=== PATIENT | female | born 1965 | race Caucasian/White ===

== ENCOUNTER 2019-04-10 17:35 | Emergency (ER) | payer BC ==
[2019-04-10 18:13] VITALS: BP 140/78
--- NOTE | 2019-04-10 18:24 | UC ---
Eye Complaint HPI - HPI Summary HPI Summary: 54-year-old female who started experiencing some eye redness with purulent drainage. She has been swimming in a chlorinated pool recently. She denies any visual changes. - History of Current Complaint Chief Complaint: UCEye Stated Complaint: EYE CONCERN Time Seen by Provider: 04/10/19 17:43 Hx Obtained From: Patient Hx Last Menstrual Period: unknown ?: No Onset/Duration: Gradual Onset Timing: Constant Severity Initially: Mild Severity Currently: Mild Pain Intensity: 4 Location of Injury: Other - No injury Aggravating Factor(s): Nothing Alleviating Factor(s): Nothing Associated Signs And Symptoms: Positive: Drainage (Purulent). Negative: Vision Impairment Right, Vision Impairment Left - Allergies/Home Medications Allergies/Adverse Reactions: Allergies Allergy/AdvReac Type Severity Reaction Status Date / Time No Known Allergies Allergy Verified 04/10/19 18:00 Home Medications: Home Medications FLUoxetine CAP* [PROzac CAP*] 20 mg PO DAILY 04/10/19 [History Confirmed ] PMH/Surg Hx/FS Hx/Imm Hx Previously Healthy: Yes Psychological History: Depression - Surgical History Surgical History: Yes Surgery Procedure, Year, and Place: (quadruplets) - Family History Known Family History: Positive: Hypertension - Social History Alcohol Use: Rare Substance Use Type: None Smoking Status (MU): Never Smoked Tobacco Review of Systems All Other Systems Reviewed And Are Negative: Yes Eyes: Positive: Drainage - Yellow purulent drainage throughout the day. No visual changes., Eye Redness Is Patient Immunocompromised?: No Physical Exam Triage Information Reviewed: Yes Appearance: Well-Appearing, No Pain Distress, Well-Nourished Vital Signs: Initial Vital Signs Temp 97.6 F 04/10/19 18:05 Pulse 77 04/10/19 18:05 Resp 20 04/10/19 18:05 BP 140/78 04/10/19 18:05 Pulse Ox 99 04/10/19 18:05 Vital Signs Reviewed: Yes Eyes: Positive: Conjunctiva Inflamed, Discharge - Purulent discharge left eye Musculoskeletal Exam: Normal Neurological Exam: Normal Psychological Exam: Normal Skin Exam: Normal Eye Complaint Course/Dx - Course Course Of Treatment: She is comfortable here. She is not to swim in chlorinated pool for the next week. Follow-up with the mortgage originator if no improvement in 3 or 4 days. - Differential Dx/Diagnosis Provider Diagnosis: Bilateral conjunctivitis Discharge - Sign-Out/Discharge Documenting (check all that apply): Patient Departure All imaging exams completed and their final reports reviewed: No Studies - Discharge Plan Condition: Fair Disposition: HOME Prescriptions: Tobramycin 0.3% OPHTH.BRENDA* 1 drop BOTH EYES Q4H 7 Days #1 btl Patient Education Materials: Conjunctivitis (ED) Referrals: Kiersten Anna MD [Primary Care Provider] - Additional Instructions: Good handwashing. Follow up with an mortgage originator in approximately 2 or 3 days if no improvement. - Billing Disposition and Condition Condition: FAIR Disposition: Home
== END 2019-04-10 18:37 | disposition home or self-care (01) ==
LOC: UCCORT 17:35
DX: H10.9 Unspecified conjunctivitis (principal)
CPT/HCPCS: 99202; G0463

== ENCOUNTER 2019-08-13 19:32 | Emergency (ER) | payer BC ==
--- OUTSIDE RECORDS SUMMARY | 2019-08-13 19:44 | XMS REPORT | Continuity of Care Document ---
:1965 External Reference #:[id number] Author Name Mik Caceres MD Address [address] [place] [address] Care Team Providers Name Role Phone Kiersten Anna MD - Family Medicine Care Team Information Medical Health Researcher Problems Active Problems Provider Date Sprain of knee and leg Ta Easley MD Onset: 01/10/2013 Mixed hyperlipidemia Eris Mccabe M.D., [facility] Onset: 02/15/2018 Hyperlipidemia Eris Mccabe M.D., [facility] Onset: 02/15/2018 Social History Type Date Description Comments Sex Unknown Tobacco Use Start: Unknown Never Smoked Cigarettes ETOH Use Denies alcohol use Recreational Drug Use Denies Drug Use Tobacco Use Start: Unknown Patient denies history of smoking Smoking Status Reviewed: 08/09/19 Patient denies history of smoking Allergies, Adverse Reactions, Alerts Description No Known Drug Allergies Medications Active Medications SIG Qnty Indications Ordering Provider Date Wellbutrin 1 po qd Unknown Tablets Benadryl Allergy 2 tab by mouth Unknown 25mg every 6 hours as Capsules needed Prozac 1 by mouth every Unknown 20mg Capsules day Immunizations Description No Information Available Vital Signs Date Vital Result Comment 08/09/2019 11:45am BP Systolic Sitting Left Arm 142 mmHg BP Diastolic Sitting Left Arm 90 mmHg Heart Rate 70 /min Respiratory Rate 18 /min Height 66.5 inches 5'6.50" Weight 278.00 lb BMI (Body Mass Index) 44.2 kg/m2 BSA (Body Surface Area) 2.31 m2 [place] body weight in kilograms 60 kg O2 % BldC Oximetry 98 % 11/08/2018 9:56am BP Systolic Sitting Right Arm 151 mmHg BP Diastolic Sitting Right Arm 88 mmHg Body Temperature 97.0 F Heart Rate 73 /min Height 66.5 inches 5'6.50" Weight 272.50 lb BMI (Body Mass Index) 43.3 kg/m2 BSA (Body Surface Area) 2.29 m2 [place] body weight in kilograms 60 kg O2 % BldC Oximetry 98 % Pain Level 3 Results Description No Information Available Procedures Date Code Description Status 08/09/2019 06162 EKG-Tracing And Report Completed Medical Devices Description No Information Available Encounters Type Date Location Provider Dx Diagnosis Office Visit 08/09/2019 Cardiology Office Mik Caceres MD R06.02 Shortness of 11:40a breath R00.2 Palpitations I10 Essential (primary) hypertension R06.83 Snoring Assessments Date Code Description Provider 08/09/2019 R06.02 Dyspnea on exertion Mik Caceres MD 08/09/2019 R00.2 Palpitations Mik Caceres MD 08/09/2019 I10 Benign essential hypertension Mik Caceres MD 08/09/2019 R06.83 Snoring Mik Caceres MD Plan of Treatment 08/09/2019 - Mik Caceres MDR06.02 Dyspnea on exertionNew Orders:Echocardiogram , Exercise Stress, Ordered: 08/09/19Comments:Likely multifactorial. Suspect contribution of obesity, deconditioning, HTN, possibly JOB. Will get stress echo to assess hemodynamic response, rule out ischemia and evaluate for LV function/CMPR00.2 PalpitationsComments:Infrequent and short lasting symptoms. Will hold off testing aside of JOB [id number] Benign essential hypertensionComments:Likely linked to sedentary life, obesity and excess salt, potentially underlying JOB. Will focus on dietary changes and get reassessed with stress [id number] SnoringComments:referral to Dr Bravo for JOB testing and managementAllFollow up:After the studies are completed. Functional Status Functional Condition Comment Date Status Independent with all ADL's Active Mental Status Description No Information Available Referrals Description No Information Available
--- NOTE | 2019-08-13 20:16 | UC ---
Throat Pain/Nasal Jonathan HPI - HPI Summary HPI Summary: 54 y/o female presents to the urgent care c/o sinus congestion w/ yellowish nasal discharge and Sore throat x 6 days. Moderate post nasal drip and crackles and pressure in left ear. Sinus pain and BUSH is 4/10. Sore throat has improve, but left side of her face feels w/ a lot of pressure and pain. Pt has taken OTC medications like Mucinex PO and Benadryl PO w/o any improvement. Pt w / Hx of sinusitis in the past. Pt denies fever, dizziness, SOB, chest pain, abdominal pain, N/V/d. - History of Current Complaint Stated Complaint: SORE THROAT, CONGESTION, LEFT EAR COMPLAINT Time Seen by Provider: 08/13/19 20:14 Hx Obtained From: Patient Hx Last Menstrual Period: unknown Onset/Duration: Gradual Onset, Lasting Days - 6 days, Still Present, Worse Since - 2 days unable to sleep well due to sinus congestion Severity: Moderate Pain Intensity: 4 Pain Scale Used: 0-10 Numeric Cough: Nonproductive Associated Signs & Symptoms: Positive: Sinus Discomfort, Nasal Discharge - yellowish. Negative: Wheezing, Fever - Epiglottits Risk Factors Epiglottis Risk Factors: Negative - Allergies/Home Medications Allergies/Adverse Reactions: Allergies Allergy/AdvReac Type Severity Reaction Status Date / Time No Known Allergies Allergy Verified 08/13/19 20:17 PMH/Surg Hx/FS Hx/Imm Hx Previously Healthy: Yes Psychological History: Anxiety, Depression - Surgical History Surgical History: Yes Surgery Procedure, Year, and Place: (quadruplets) - Family History Known Family History: Positive: Hypertension - Social History Occupation: Employed Full-time Lives: With Family Alcohol Use: Rare Substance Use Type: None Smoking Status (MU): Never Smoked Tobacco Review of Systems All Other Systems Reviewed And Are Negative: Yes Constitutional: Positive: Negative Skin: Positive: Negative Eyes: Positive: Negative ENT: Positive: Sore Throat, Ear Ache - left ear pain, Nasal Discharge - yellowish, Sinus Congestion, Sinus Pain/Tenderness, Other - moderate yellowish PND Respiratory: Positive: Cough - dry Cardiovascular: Positive: Negative Gastrointestinal: Positive: Negative Genitourinary: Positive: Negative Motor: Positive: Negative Neurovascular: Positive: Negative Musculoskeletal: Positive: Negative Neurological: Positive: Negative Psychological: Positive: Negative Is Patient Immunocompromised?: No Physical Exam - Summary Physical Exam Summary: Vitals: reviewed General: Well developed, well-nourished obese female patient with NAD. Head and face: Normocephalic and atraumatic, Positive tenderness over the frontal and maxillary sinuses.. Eyes: PERRLA, EOMI x 2. Normal conjunctiva. No eye discharge. ENT: Ears and TM with normal limits. Nose: edematous and erythematous nasal mucosa with with yellowish discharge and erythematous mucosa. Pharynx with erythema, no exudate. yellowish PND Neck: Supple, no JVD, no carotid bruits and no lymphadenopathy. Lungs: clear, no rales, no rhonchi, no wheezes. CVS: RRR, S1 and S2 present no murmurs or gallops appreciated. Abdomen: soft nontender with positive bowel sounds. Extremities: no edema noted. Neuro: WNL. Skin: warm and dry Triage Information Reviewed: Yes Throat Pain/Nasal Course/Dx - Course Course Of Treatment: 54 y/o female presents to the urgent care c/o sinus congestion w/ yellowish nasal discharge and Sore throat x 6 days. Moderate post nasal drip and crackles and pressure in left ear. Sinus pain and BUSH is 4/10. Sore throat has improve, but left side of her face feels w/ a lot of pressure and pain. Pt has taken OTC medications like Mucinex PO and Benadryl PO w/o any improvement. Pt w / Hx of sinusitis in the past. Pt denies fever, dizziness, SOB, chest pain, abdominal pain, N/V/d. Hx obtained. Pt w/ bacterial sinusitis one examination. Pt with 6 days of symptoms getting worse. Pt Rx Amoxicillin PO and flonase nasal spray. Discharge instructions explained to Pt. Advised to Return to the clinic or PCP if symptoms do not improve.Pt understood and agreed with plan of care. - Differential Dx/Diagnosis Differential Diagnosis/HQI/PQRI: Laryngitis, Mononucleosis, Otitis Media, Pharyngitis, Sinusitis, Tonsillitis, URI Provider Diagnosis: Acute bacterial sinusitis Discharge ED - Sign-Out/Discharge Documenting (check all that apply): Patient Departure - D/C home All imaging exams completed and their final reports reviewed: No Studies - Discharge Plan Condition: Stable Disposition: HOME Prescriptions: Amoxicillin PO (*) [Amoxicillin 875 MG (*)] 875 mg PO BID #20 tab Fluticasone NASAL SPRAY 50MCG* [Flonase NASAL SPRAY 50MCG*] 2 spray BOTH NARES DAILY #1 btl Patient Education Materials: Sinusitis (ED) Referrals: Kiersten Anna MD [Primary Care Provider] - 3 Days Additional Instructions: 1- Please increase fluid intake and rest. take full course of antibiotics to avoid resistance. Take yogurts w/ probiotics or Culturelle to protect your GI system 2-Use Flonase as directed to help drain fluid. Also buy saline drops to clear sinuses 3-Continue taking Naproxen PO to alleviates sinus pain or BUSH 4-Please f/u w/ your PCP in 3 days if symptoms do not improve for further management and treatment - Billing Disposition and Condition Condition: STABLE Disposition: Home
[2019-08-13 20:21] VITALS: BP 139/82
== END 2019-08-13 20:48 | disposition home or self-care (01) ==
LOC: UCCORT 19:32
DX: J01.90 Acute sinusitis, unspecified (principal); B96.89 Other specified bacterial agents as the cause of diseases classified elsewhere; H92.02 Otalgia, left ear
CPT/HCPCS: 99212; G0463

== ENCOUNTER 2019-08-31 14:33 | Emergency (ER) | payer BC ==
[2019-08-31 15:22] VITALS: BP 143/93
--- NOTE | 2019-08-31 15:37 | UC ---
Throat Pain/Nasal Jonathan HPI - HPI Summary HPI Summary: Pt presents with c/o right side sinus pressure X 1 week. Pt was seen here on and dx with sinusitis and given amox for 10- days and flonase. Pt states that symptoms resolved but then returned. Pt is an established pt of Dr. Bravo for previous ENT disorder. Denies nasal congestion, fever cough, ST. - History of Current Complaint Chief Complaint: UCRespiratory Stated Complaint: SINUS CONCERN Time Seen by Provider: 08/31/19 15:24 Hx Obtained From: Patient Hx Last Menstrual Period: unknown ?: No Onset/Duration: Gradual Onset, Lasting Days, Still Present Severity: Mild Pain Intensity: 3 Cough: None Associated Signs & Symptoms: Positive: Sinus Discomfort - right frontal Related History: Seasonal Allergies - Epiglottits Risk Factors Epiglottis Risk Factors: Negative - Allergies/Home Medications Allergies/Adverse Reactions: Allergies Allergy/AdvReac Type Severity Reaction Status Date / Time No Known Allergies Allergy Verified 08/31/19 15:17 Home Medications: Home Medications Guaifenesin/Pseudo 600/60(NF) [Mucinex D 600/60 (NF)] 1 tab PO BID PRN 08/31/19 [History Confirmed 08/31/19] Ibuprofen TAB* [Advil TAB*] 400 mg PO Q6H PRN 08/31/19 [History Confirmed ] diPHENhydraMINE PO* [Benadryl PO 25 MG TAB*] 25 mg PO BEDTIME 08/31/19 [History Confirmed 08/31/19] PMH/Surg Hx/FS Hx/Imm Hx Previously Healthy: Yes - Surgical History Surgical History: Yes Surgery Procedure, Year, and Place: (quadruplets) - Family History Known Family History: Positive: Hypertension - Social History 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 Alcohol Use: Rare Substance Use Type: None Smoking Status (MU): Never Smoked Tobacco Have You Smoked in the Last Year: No - Immunization History Vaccination Up to Date: Yes Review of Systems All Other Systems Reviewed And Are Negative: Yes Constitutional: Positive: Negative Skin: Positive: Negative Eyes: Positive: Negative ENT: Positive: Sinus Pain/Tenderness Respiratory: Positive: Negative Cardiovascular: Positive: Negative Gastrointestinal: Positive: Negative Genitourinary: Positive: Negative Motor: Positive: Negative Neurovascular: Positive: Negative Musculoskeletal: Positive: Negative Neurological: Positive: Headache Psychological: Positive: Negative Is Patient Immunocompromised?: No Physical Exam Triage Information Reviewed: Yes Appearance: Well-Appearing Vital Signs: Initial Vital Signs Temp 98.8 F 08/31/19 15:14 Pulse 66 08/31/19 15:14 Resp 16 08/31/19 15:14 BP 143/93 08/31/19 15:14 Pulse Ox 99 08/31/19 15:14 Vital Signs Reviewed: Yes Eye Exam: Normal ENT Exam: Other ENT: Positive: Sinus tenderness - right frontal Dental Exam: Normal Neck exam: Normal Respiratory Exam: Normal Cardiovascular Exam: Normal Musculoskeletal Exam: Normal Neurological Exam: Normal Psychological Exam: Normal Skin Exam: Normal Throat Pain/Nasal Course/Dx - Differential Dx/Diagnosis Differential Diagnosis/HQI/PQRI: Sinusitis, URI, Other - sinus headache Provider Diagnosis: Sinus headache Discharge ED - Sign-Out/Discharge Documenting (check all that apply): Patient Departure All imaging exams completed and their final reports reviewed: No Studies - Discharge Plan Condition: Stable Disposition: HOME Prescriptions: predniSONE TAB* [Deltasone 10 MG TAB*] 30 mg PO DAILY #12 tab Patient Education Materials: Rhinosinusitis (ED), General Headache (ED) Referrals: Kiersten Anna MD [Primary Care Provider] - If Needed Additional Instructions: Please follow up with your ENT provider as soon as possible. - Billing Disposition and Condition Condition: STABLE Disposition: Home - Attestation Statements Provider Attestation: I was available for consult. This patient was seen by the JOVAN. The patient was not presented to, seen by, or examined by me. -Becky
== END 2019-08-31 15:47 | disposition home or self-care (01) ==
LOC: UCCORT 14:33
DX: R51 Headache (principal); R09.89 Other specified symptoms and signs involving the circulatory and respiratory systems
CPT/HCPCS: 99212; G0463

== ENCOUNTER 2021-04-14 07:30 | Inpatient (IN) ==
[~2021-04-14 07:30] MED LIST: Buffered Lidocaine 1% SYRIN 1 ml INTRADERM ONE; Lactated Ringers 1000 ml BAG 1,000 ML IV SCH
[2021-04-14] MEDS ORDERED: ceFAZolin 1 GM ADVAN 1 GM ADDV.VIAL IVPB ONE (11:42)
[2021-04-14] MEDS ORDERED: Heparin 5000 UNITS/ML 1 mL VIAL ONE (11:42)
[2021-04-14] MEDS ORDERED: ceFAZolin 2 GM in NS PREMIX 2 GM/100 ML BAG IVPB ONE (11:43)
[2021-04-14] MEDS ORDERED: Rocuronium 50 mg VIAL 10 mg/ml 5 ml VIAL (50 mg) ONE ×3 (15:00→17:37)
[2021-04-14] MEDS ORDERED: fentaNYL 250 mcg/5 ml 50 MCG/ML 5 ml VIAL (250 MCG) ONE (15:00)
[2021-04-14] MEDS ORDERED: Propofol 10 MG/ML 20 ML BTL ONE (15:00)
[2021-04-14] MEDS ORDERED: Midazolam 2 mg/2 ml VIAL 1 mg/ml 2 ml VIAL (2 mg) ONE (15:00)
[2021-04-14] MEDS ORDERED: Lidocaine 2% PF 5 ML VIAL ONE (15:00)
[2021-04-14] MEDS ORDERED: Bupivacaine 0.25% EPI 200,000 30 ML SDV ONE (15:43)
[2021-04-14] MEDS ORDERED: Methylene Blue 0.5 % 50 MG/10 ML AMP IV ONE (15:43)
[2021-04-14] MEDS ORDERED: Ondansetron 4 mg VIAL 2 MG/ML 2 ml VIAL ONE ×2 (16:05→16:27)
[2021-04-14] MEDS ORDERED: Ketamine HCL 50 mg/ml 10 ml VIAL (500 MG) ONE (16:19)
[2021-04-14] MEDS ORDERED: DiMENhydriNATE IV 50 mg/ml 1 ml VIAL ONE (16:27)
[2021-04-14] MEDS ORDERED: Dexamethasone IV 4 MG/ML VIAL 1 ml VIAL ONE (16:27)
[2021-04-14] MEDS ORDERED: Phenylephrine 40 mcg/mL 10mL (400mcg) SYRINGE ONE (17:05)
[2021-04-14] MEDS ORDERED: Sugammadex 500 MG/5 ML 5 ml VIAL IV PUSH ONE (17:53)
[2021-04-14] MEDS ORDERED: fentaNYL 100 mcg/2 ml 50 MCG/ML VIAL ONE (18:39)
[2021-04-14] MEDS ORDERED: Acetaminophen IV 1 GM/100ML 100 ML IV ONE ×2 (18:55→19:11)
[2021-04-14] MEDS ORDERED: DiMENhydriNATE IV 50 mg/ml 1 ml VIAL IV PUSH PRN (18:55)
[2021-04-14] MEDS ORDERED: Naloxone 0.4 mg VIAL 0.4 mg/ml 1 ml VIAL IV PRN (18:55)
[2021-04-14] MEDS ORDERED: HYDROcodone/ACET. 7.5/325 LIQ 15 ML UDC PO PRN (19:07)
[2021-04-14] MEDS ORDERED: diPHENhydraMINE IV 50 MG/ML 1 ml VIAL (BENADRYL) SLOW PUSH PRN (19:07)
[2021-04-14] MEDS ORDERED: Ondansetron 4 mg VIAL 2 MG/ML 2 ml VIAL IV PRN (19:07)
[2021-04-14] MEDS ORDERED: HYDROmorphone 0.5 MG/0.5 ML SYRINGE IV SLOW PU PRN (19:07)
[2021-04-14] MEDS ORDERED: HYDROmorphone 1 MG/1 ML SYRINGE IV SLOW PU PRN (19:07)
[2021-04-14] MEDS ORDERED: HYDROmorphone 1 MG/1 ML SYRINGE ONE (19:33)
[2021-04-14] MEDS: HYDROmorphone 1 MG/1 ML SYRINGE IV PRN ×2 (19:34→19:42)
[2021-04-14] MEDS: Lactated Ringers 1000 ml BAG 1,000 ML IV SCH (20:00)
[2021-04-14] MEDS: Famotidine IV 10 MG/ML 2 ml VIAL (20 mg) IV SLOW PU SCH (20:40)
[2021-04-14] MEDS: Heparin 5000 UNITS/ML 1 mL VIAL SUBCUT SCH (22:00)
[2021-04-15] MEDS ORDERED: Acetaminophen IV 1 GM/100ML 100 ML IV SCH ×2 (01:00→07:30)
[2021-04-15] MEDS: Lactated Ringers 1000 ml BAG 1,000 ML IV SCH ×2 (03:15→17:02)
[2021-04-15] MEDS: Heparin 5000 UNITS/ML 1 mL VIAL SUBCUT SCH ×3 (05:46→21:30)
[2021-04-15] MEDS: Famotidine IV 10 MG/ML 2 ml VIAL (20 mg) IV SLOW PU SCH ×2 (08:31→21:30)
[2021-04-15] MEDS: DULoxetine DR 60 mg CAP PO SCH (10:20)
[2021-04-15] MEDS: D5W 1/2 NS KCl 20 meq 1000 ml 1,000 ML IV SCH (19:47)
[2021-04-16] MEDS: D5W 1/2 NS KCl 20 meq 1000 ml 1,000 ML IV SCH (03:44)
[2021-04-16] MEDS: Heparin 5000 UNITS/ML 1 mL VIAL SUBCUT SCH (06:23)
[2021-04-16] MEDS: DULoxetine DR 60 mg CAP PO SCH (07:57)
[2021-04-16] MEDS: Famotidine IV 10 MG/ML 2 ml VIAL (20 mg) IV SLOW PU SCH (07:57)
[2021-04-16 11:29] VITALS: BP 134/56
[2021-04-17] MEDS ORDERED: Scopolamine PATCH Remove NOTE PATCH OFF SCH (16:00)
== END 2021-04-16 12:10 | disposition home or self-care (01) | DRG 403 ==
LOC: AA 11:26 → SSU 20:04
PROVIDERS: ADMIT Surgery; ATTEND Surgery